=== PATIENT | female | born 1990 | race Caucasian/White ===

== ENCOUNTER 2024-04-13 09:48 | Inpatient (IN) | payer OTHER ==
[2024-04-13] VITALS (16 sets, daily range): BP systolic 113–146; BP diastolic 58–84; PULSE 59–103; TEMP 97.8–98.5
[~2024-04-13] VITALS: Ht 167.6 cm; Wt 91.4 kg
[~2024-04-13 09:48] MED LIST: IBU800 M1 PO; PRENATAL TABLET PO; SYNTHROID0.075 MG/T PO
[2024-04-13] MEDS ORDERED: LR 1,000 ML IV SCH (10:00)
[2024-04-13] MEDS ORDERED: Acetaminophen 500 MG TAB PO SCH (13:00)
[2024-04-13] MEDS ORDERED: Loratadine 10 MG TAB PO PRN (13:00)
[2024-04-13] MEDS ORDERED: Magnes Hydrox (MOM) 80 MG/ML 30 ML CUP PO PRN (13:00)
[2024-04-13] MEDS ORDERED: LR 1,000 ML IV PRN (13:00)
[2024-04-13] MEDS ORDERED: Measles/Mumps/Rubella Virus Vaccine Live w Diluent 0.5 ML VIAL SQ SCH (13:00)
[2024-04-13] MEDS ORDERED: oxyCODONE 5 MG TAB PO PRN (13:00)
[2024-04-13] MEDS ORDERED: Naloxone 0.4 MG/ML VIAL IV PRN (13:00)
[2024-04-13] MEDS ORDERED: Ondansetron 4 MG/2 ML VIAL IV PRN (13:00)
[2024-04-13] MEDS ORDERED: Sennosides/Docusate 8.6-50 MG TAB PO SCH (17:00)
[2024-04-13] MEDS ORDERED: Ibuprofen 800 MG TAB PO SCH (18:52)
[2024-04-14 00:20] VITALS: BP 115/68; PULSE 66; TEMP 98.2
[2024-04-14 04:45] VITALS: BP 108/58; PULSE 71; TEMP 98.1
[2024-04-14 08:30] VITALS: BP 103/61; PULSE 83; TEMP 97.9
[2024-04-14] MEDS ORDERED: Prenatal Vitamins/Iron/FA TAB PO SCH (09:00)
--- NOTE | 2024-04-14 09:44 | NUR ---
Initial visit; Parents thanked [employer] [facility] for offering congratulations and God's blessings for the of their daughter and information regarding the availability of Spiritual Care at our hospital.
[2024-04-14 17:00] VITALS: BP 119/65; PULSE 86; TEMP 98.7
[2024-04-14 22:00] VITALS: BP 133/73; PULSE 72; TEMP 97.8
[2024-04-15 07:00] VITALS: BP 124/74; PULSE 89; TEMP 97.9
== END 2024-04-15 13:00 | disposition home or self-care (01) | DRG 788 ==
LOC: OB 09:48
PROVIDERS: ADMIT Obstetrics & Gynecology
PROC: 10D00Z1 Extraction of Products of Conception, Low, Open Approach (ICD-10-PCS; principal; 2024-04-13)
DX: O32.8XX0 Maternal care for other malpresentation of fetus, not applicable or unspecified (principal); Z3A.39 39 weeks gestation of pregnancy; Z37.0 Single live birth; O99.284 Endocrine, nutritional and metabolic diseases complicating childbirth; E03.9 Hypothyroidism, unspecified; O69.81X0 Labor and delivery complicated by cord around neck, without compression, not applicable or unspecified; O99.214 Obesity complicating childbirth
CPT/HCPCS: J7120